=== PATIENT | female | born 1950 | race Caucasian/White ===

== ENCOUNTER → 2016-11-22 | Outpatient (CLI) | payer OTHER, MEDICAID ==
--- NOTE | 2016-11-26 14:39 | MRI ---
History: Right knee pain for 1 month Technique: Multiplanar, multi sequence MR imaging of the right knee was performed without contrast. Comparison:NONE Findings: The anterior cruciate and posterior cruciate ligaments appear intact. There is a complex tear involving the body and posterior horn of the medial meniscus. There is an un dersurface flap component involving the posterior horn. A root tear is also noted. There is low sign al material noted inferiorly within the meniscal tibial recess at the level of the posterior horn/lisbeth dy junction as seen on coronal PD fat sat image 25 concerning for a displaced meniscal flap. There i s mild motion artifact on the coronal PD fat sat images. There is a vertical increased signal noted within the periphery of the lateral meniscus body as demonstrated on coronal PD fat sat images [id number] . This is likely secondary to artifact, however, a vertical longitudinal peripheral tear of the late ral meniscus is not entirely excluded. This is not confirmed on the sagittal or the axial images. Fl uid signal between the posterior horn of the medial meniscus and posterior joint capsule is present compatible with a meniscocapsular separation. The medial collateral ligament is intact. The iliotibial band, fibular collateral ligament, biceps f emoris tendon appear intact. The popliteus is appears intact. Tendons of the gastrocnemius, semimemb ranosus, and pes anserinus appear intact. There is moderate periarticular soft tissue edema There is mild increased signal within the vastus medialis obliquus, compatible with myotendinous str ain, with a partial thickness tear of the medial patellofemoral ligament suggested. There is 5 mm la teral subluxation of the patella. Fluid superficial to the patellar tendon suggest superficial infra patellar bursitis. There is intermediate signal material noted within the suprapatellar bursa sugges ting synovitis. Small intra-articular loose bodies cannot be excluded. The quadriceps and the patellar tendons appear intact. There is a moderately sized joint effusion. There is bone marrow edema within the medial tibial plateau, with subtle flattening of the cortex me asuring proximal 1 mm compatible with a minimally depressed medial tibial plateau fracture. The frac ture line measures 8 mm transverse and demonstrates approximately 1 mm of depression. This measures approximately 8 mm in AP dimension. No full thickness overlying cartilage defect is identified. Ther e is at least grade 2 overlying chondral thinning. Evaluation of the articular cartilage is limited due to motion artifact and low signal to noise. There is a 3 mm delaminating cartilage defect involv ing the lateral tibial plateau. There is grade 3/grade 4 chondromalacia involving the median patella r ridge and medial patellar facet, with subjacent marrow edema and cystic change. There is subtle mccarty bcortical edema involving posterior aspect of the medial femoral condyle, likely a 'Kissing contusio n'. Impression: 1. Complex tear involving the body and posterior horn of the medial meniscus as discussed above. The re is an undersurface flap component involving the posterior horn along with a posterior root tear. Low signal material within the meniscotibial recess is concerning for a displaced meniscal fragment. 2. Edema within the medial tibial plateau with subtle, a proximal 1 mm, depression of the overlying tibial cortex, with subcortical fracture line measuring 8 x 8 mm and overlying chondral thinning. Co nsiderations include an acute minimally depressed medial tibial plateau fracture or stress fracture. Given the associated meniscal tear and bone marrow edema involving the posterior medial femoral con dyle, this is felt to represent an acute to subacute medial tibial plateau fracture. 3. Vertical increased signal within the lateral meniscus body which is felt represent artifact as di scussed above. Please note that a peripheral vertical longitudinal tear cannot be entirely excluded. 4. Partial tear of the medial patellofemoral ligament and mild myotendinous strain of vastus mediali s. There is mild lateral subluxation of the patella. 5. Moderately sized joint effusion with evidence of synovitis. Please note that small interrupt bodi es cannot be entirely excluded. 6. Tricompartmental osteoarthrosis/chondromalacia, with grade 3/grade 4 chondromalacia involving pat ellofemoral compartment. 7. Superficial infrapatellar bursitis. 8. Other findings as above. Reported By:
== END ==
LOC: RAD 13:39
PROVIDERS: ATTEND Specialist
DX: M23.321 Other meniscus derangements, posterior horn of medial meniscus, right knee (principal)
CPT/HCPCS: 73721

== ENCOUNTER → 2016-12-05 | Outpatient (CLI) | payer OTHER, MEDICAID ==
--- NOTE | 2016-12-05 12:15 | RAD ---
HISTORY: Preop knee surgery Study: Chest two-view Comparison: None Findings: The trachea is midline. The cardiac silhouette is enlarged. No congestive heart failure is noted.. The lungs are clear without focal infiltrate or effusion. The bony thorax is unremarkable. IMPRESSION: 1. Moderate cardiomegaly without congestive heart failure 2. Lungs clear Reported By:
[2016-12-05 12:38] LABS: BASOPHILS % (AUTO) 0.5 % (0.2-1.0); EOSINOPHILS # (AUTO) 0.3 x10^3/uL (0.0-0.2); EOSINOPHILS % (AUTO) 3.2 % (0.9-2.9); HEMATOCRIT 40.7 % (36.0-47.0); HEMOGLOBIN 13.8 g/dL (12.0-16.0); LYMPHOCYTES # (AUTO) 1.9 X10^3/uL (1.3-2.9); LYMPHOCYTES % (AUTO) 20.6 % (21.0-51.0); MEAN CORPUSCULAR HEMOGLOBIN 29.9 pg (27.0-34.0); MEAN CORPUSCULAR HGB CONC 33.9 g/dL (33.0-35.0); MEAN CORPUSCULAR VOLUME 88.3 fL (80.0-100.0); MEAN PLATELET VOLUME 8.7 fL (7.4-11.0); MONOCYTES # (AUTO) 0.7 x10^3/uL (0.3-0.8); MONOCYTES % (AUTO) 7.1 % (0.0-13.0); NEUTROPHILS # (AUTO) 6.5 x10^3/uL (2.2-4.8); NEUTROPHILS % (AUTO) 68.6 % (42.0-75.0); PLATELET COUNT 229 X10^3/uL (150.0-450.0); RED CELL DISTRIBUTION WIDTH 14.3 % (11.6-16.5); WHITE BLOOD COUNT 9.4 X10^3/uL (3.6-10.0)
[2016-12-05 12:39] LABS: BILIRUBIN,URINE NEGATIVE (NEGATIVE); BLOOD/HEMOGLOBIN,URINE NEGATIVE (NEGATIVE); GLUCOSE, URINE NEGATIVE (NEGATIVE); KETONES,URINE NEGATIVE (NEGATIVE); LEUKOCYTE ESTERASE ,URINE NEGATIVE (NEGATIVE); NITRITES,URINE NEGATIVE (NEGATIVE); PROTEIN,URINE NEGATIVE (NEGATIVE); UROBILINOGEN,URINE NORMAL (NORMAL)
[2016-12-05 12:49] LABS: ALANINE AMINOTRANSFERASE 30 Units/L (12-78); ALKALINE PHOSPHATASE 88 Units/L (46-116); ASPARTATE AMINO TRANSFERASE 40 Units/L (15-37); BLOOD UREA NITROGEN 28 mg/dL (7-18); CALCIUM 9.9 mg/dL (8.5-10.1); CARBON DIOXIDE 32.8 mmol/L (21-32); CHLORIDE 100 mmol/L (98-107); CREATININE 1.06 mg/dL (0.55-1.02); GLUCOSE 100 mg/dL (65-99); SODIUM 143 mmol/L (136-145); TOTAL PROTEIN 8.6 g/dL (6.4-8.2); eGFR BLACK RACES > 60 (>60); eGFR NON BLACK RACES 55 (>60)
[2016-12-05 12:54] LABS: APPEARANCE,URINE CLEAR (CLEAR); BACTERIA,URINE NEGATIVE /HPF (NEGATIVE); COLOR,URINE YELLOW (YELLOW); RBC,URINE 0-1 /HPF (NEGATIVE); SQUAMOUS EPITHELIAL CELL,UR FEW /HPF (NEGATIVE)
== END ==
LOC: LAB 11:17
PROVIDERS: ATTEND Specialist
DX: Z01.818 Encounter for other preprocedural examination (principal); Z01.810 Encounter for preprocedural cardiovascular examination; Z01.811 Encounter for preprocedural respiratory examination; Z79.899 Other long term (current) drug therapy; Z11.8 Encounter for screening for other infectious and parasitic diseases; M23.303 Other meniscus derangements, unspecified medial meniscus, right knee
CPT/HCPCS: 36415; 71020; 80053; 81001; 85025; 87641; 93005; 93010

== ENCOUNTER 2016-12-11 07:51 | Day surgery (SDC) | payer OTHER, MEDICAID ==
[2016-12-11] MEDS ORDERED: NS 1000 ML 1,000 ML ONE (08:31)
[2016-12-11] MEDS ORDERED: NS 50 ML IV + SPIKE MINIBAG* 100 ML IV ONE (08:32)
[2016-12-11] MEDS ORDERED: ANCEF VIAL 1 GM ONE (08:33)
[2016-12-11] MEDS ORDERED: FENTANYL INJ 250 mcg ONE (09:40)
[2016-12-11] MEDS ORDERED: MARCAINE 0.25% WITH EPI IJ ONE (09:57)
[2016-12-11] MEDS ORDERED: NS IRRIGATION 3000 ML 3,000 ML with ADRENALINE CHL INJ 1 MG IR ONE ×8 (10:18→10:27)
[2016-12-11] MEDS ORDERED: KENALOG INJ 40 MG ONE (10:19)
[2016-12-11] MEDS ORDERED: NORCO 5/325 MG TAB ONE (11:15)
[2016-12-11 11:57] VITALS: BP 152/67
[2016-12-11] MEDS ORDERED: ZOFRAN INJ 4 MG VIAL ONE (16:03)
[2016-12-11] MEDS ORDERED: REGLAN INJ 10 MG VIAL ONE (16:03)
[2016-12-11] MEDS ORDERED: SUPRANE IN ONE (16:03)
[2016-12-11] MEDS ORDERED: DIPRIVAN VIAL ONE (16:03)
[2016-12-11] MEDS ORDERED: XYLOCAINE 2 % (PLAIN) ONE (16:03)
[2016-12-11] MEDS ORDERED: VERSED ONE (16:03)
== END 2016-12-11 11:55 | disposition home or self-care (01) ==
LOC: SURG1 07:51
PROVIDERS: ATTEND Specialist
PROC: 0SBC4ZZ Excision of Right Knee Joint, Percutaneous Endoscopic Approach (ICD-10-PCS; principal; 2016-12-11 10:15)
DX: S83.241A Other tear of medial meniscus, current injury, right knee, initial encounter (principal); X58.XXXA Exposure to other specified factors, initial encounter; M17.11 Unilateral primary osteoarthritis, right knee
CPT/HCPCS: A4222; S0020; J0170; J0690; J2001; J2250; J2405; J2765; J3010; J3301; J3490